=== PATIENT | female | born 1990 | race Caucasian/White ===

== ENCOUNTER 2019-07-13 11:52 | Emergency (ER) | payer OTHER ==
[2019-07-13] MEDS ORDERED: ASPIRIN 81 MG TABLET, CHEWABLE PO ONE (12:36)
--- NOTE | 2019-07-13 12:36 | ER Document Report ---
ED Medical Screen (RME) - General Chief Complaint: Chest Pain Stated Complaint: CHEST PAIN Time Seen by Provider: 07/13/19 12:30 Mode of Arrival: Ambulatory Information source: Patient Notes: 29-year-old female presents to ED for complaint of chest pain off and on for 3 weeks. States she has not been to the doctor yet. Pain is in the center but a little bit more to the right side. Denies any fevers cough or congestion. She states she did have a blood clot in the left lung when with her child who is 3-1/2 years old. States she has not smoked or used vape recently. She denies any recent surgeries or any long trips. She does have a history of asthma. States her last menstrual period was June 19, 2019. Lung sounds clear I have greeted and performed a rapid initial assessment of this patient. A comprehensive ED assessment and evaluation of the patient, analysis of test results and completion of medical decision making process will be conducted by an additional ED providers. TRAVEL OUTSIDE OF THE [place] IN LAST 30 DAYS: No - Related Data Allergies/Adverse Reactions: Penicillins Allergy (Verified 07/13/19 12:29) Past Medical History Pulmonary Medical History: Reports: Hx Asthma Neurological Medical History: Reports: Hx Migraine Past Surgical History: Reports: Hx Oral Surgery - Immunizations Immunizations up to date: Yes Hx Diphtheria, Pertussis, Tetanus Vaccination: Yes
[2019-07-13 13:07] LABS: ABSOLUTE EOSINOPHILS # (AUTO) 0.1 10^3/uL (0.0-0.6); ABSOLUTE LYMPHOCYTES (AUTO) 1.5 10^3/uL (0.5-4.7); ABSOLUTE MONOCYTES (AUTO) 0.5 10^3/uL (0.1-1.4); ABSOLUTE NEUT (AUTO) 4.6 10^3/uL (1.7-8.2); BASOPHILS % (AUTO) 0.4 % (0-2); HEMATOCRIT 36.3 % (36.0-47.0); HEMOGLOBIN 12.6 g/dL (12.0-15.5); LYMPHOCYTES % (AUTO) 22.3 % (13-45); MEAN CORPUSCULAR HEMOGLOBIN 30.8 pg (27.0-33.4); MEAN CORPUSCULAR HGB CONC 34.6 g/dL (32.0-36.0); MEAN CORPUSCULAR VOLUME 89 fl (80-97); MONOCYTES % (AUTO) 7.4 % (3-13); PLATELET COUNT 282 10^3/uL (150-450); RED BLOOD COUNT 4.09 10^6/uL (3.72-5.28); RED CELL DISTRIBUTION WIDTH 12.7 % (11.5-14.0); SEGMENTED NEUTROPHILS % (AUTO) 67.9 % (42-78); TOTAL CELLS COUNTED % (AUTO) 100 %; WHITE BLOOD COUNT 6.8 10^3/uL (4.0-10.5)
[2019-07-13 13:15] LABS: APPEARANCE,URINE CLEAR; BILIRUBIN,URINE NEGATIVE (NEGATIVE); COLOR,URINE COLORLESS; GLUCOSE, URINE NEGATIVE (NEGATIVE); KETONES,URINE NEGATIVE (NEGATIVE); PROTEIN,URINE NEGATIVE (NEGATIVE); URINE SPECIFIC GRAVITY 1.004; UROBILINOGEN,URINE NEGATIVE mg/dL (<2.0)
[2019-07-13 13:17] LABS: ALBUMIN 4.6 g/dL (3.5-5.0); ALKALINE PHOSPHATASE 81 U/L (38-126); ANION GAP 9 (5-19); ASPARTATE AMINO TRANSFERASE 31 U/L (14-36); BILIRUBIN,DIRECT 0.2 mg/dL (0.0-0.4); BILIRUBIN,TOTAL 0.4 mg/dL (0.2-1.3); BLOOD UREA NITROGEN 12 mg/dL (7-20); CALCIUM 9.7 mg/dL (8.4-10.2); CARBON DIOXIDE 29 mmol/L (22-30); CHLORIDE 103 mmol/L (98-107); GLUCOSE 90 mg/dL (75-110); POTASSIUM 4.2 mmol/L (3.6-5.0); TOTAL PROTEIN 8.3 g/dL (6.3-8.2)
--- NOTE | 2019-07-13 13:54 | ER Document Report ---
ED Cardiac - General Chief Complaint: Chest Pain Stated Complaint: CHEST PAIN Time Seen by Provider: 07/13/19 12:30 Mode of Arrival: Ambulatory Notes: CHIEF COMPLAINT: Right chest pain intermittently for 3 weeks HPI: 29-year-old female presenting to the emergency department complaining of intermittent pain in the right chest usually when she wakes up in the morning over the last 3 weeks. Pain does change with palpation, does change with movement of the right arm at the shoulder. Has taken some anti-inflammatories over the last several weeks with some improvement in the pain but it was more persistent this morning so she decided to come in for evaluation. Patient states that she has a history of a pulmonary embolus several years ago and wanted to be sure that this was not a pulmonary embolus. ROS: See HPI - all other systems were reviewed and are otherwise negative Constitutional: no fever Eyes: no drainage, no blurred vision ENT: no runny nose, no sore throat Cardiovascular: + chest pain Resp: no SOB, no cough GI: no vomiting, no diarrhea : no dysuria Integumentary: no rash Allergy: no hives Musculoskeletal: no extremity pain or swelling Neurological: no numbness/tingling, no weakness MEDICATIONS: I agree with the patient medications as charted by the RN. ALLERGIES: I agree with the allergies as charted by the RN. PAST MEDICAL HISTORY/PAST SURGICAL HISTORY: Reviewed and agree as charted by RN. SOCIAL HISTORY: Reviewed and agree as charted by RN. FAMILY HISTORY: No significant familial comorbid conditions directly related to patient complaint EXAM: Reviewed vital signs as charted by RN. CONSTITUTIONAL: Alert and oriented and responds appropriately to questions. Well-appearing; well-nourished, no acute distress HEAD: Normocephalic; atraumatic EYES: PERRL; Conjunctivae clear, sclerae non-icteric ENT: normal nose; no rhinorrhea; moist mucous membranes; pharynx without lesions noted NECK: Supple without meningismus; non-tender; no cervical lymphadenopathy, no masses CARD: RRR; no murmurs, no clicks, no rubs, no gallops; symmetric distal pulses. There is mild tenderness on palpation of the right lateral chest wall RESP: Normal chest excursion without splinting or tachypnea; breath sounds clear and equal bilaterally; no wheezes, no rhonchi, no rales, pulse oximetry 97% on room air not hypoxic ABD/GI: Normal bowel sounds; non-distended; soft, non-tender, no rebound, no guarding; no palpable organomegaly or masses. BACK: The back appears normal and is non-tender to palpation, there is no CVA tenderness EXT: Normal ROM in all joints; non-tender to palpation; no cyanosis, no effusions, no edema SKIN: Normal color for age and race; warm; dry; good turgor; no acute lesions noted NEURO: Moves all extremities equally; Motor and sensory function intact PSYCH: The patient's mood and manner are appropriate. Grooming and personal hygiene are appropriate. MDM: 29-year-old female presenting to the emergency department with an intermittent right chest wall pain. The discomfort is reproducible with palpation and movement of the right arm at the shoulder. I discussed evaluation results at length with the patient, work-up was started in triage. Her screenin g lab work shows a normal d-dimer. Will obtain a chest x-ray. She has a normal sinus rhythm EKG. Her discomfort being reproducible makes it less likely to be a pulmonary embolus. I did discuss this at length with her. I did offer to obtain CT of the chest to evaluate for pulmonary embolus. Patient prefers to not have the study done at this time aware that we cannot definitively rule out a PE without imaging study. She is willing to have a chest x-ray done to ensure there is no pneumothorax or other abnormality. Patient would prefer anti- inflammatories and a muscle relaxer if her chest x-ray is normal and to follow- up with orthopedics. She states that emptiness persists she will return for reevaluation TRAVEL OUTSIDE OF THE [place] IN LAST 30 DAYS: No - Related Data Allergies/Adverse Reactions: Penicillins Allergy (Verified 07/13/19 12:29) Home Medications: inhaler as needed Past Medical History - General Information source: Patient - Social History Smoking Status: Former Smoker Frequency of alcohol use: None Drug Abuse: None Family History: Reviewed & Not Pertinent, Arthritis, CVA, Hyperlipidemia Patient has suicidal ideation: No Patient has homicidal ideation: No Pulmonary Medical History: Reports: Hx Asthma Neurological Medical History: Reports: Hx Migraine Past Surgical History: Reports: Hx Oral Surgery - Immunizations Immunizations up to date: Yes Hx Diphtheria, Pertussis, Tetanus Vaccination: Yes Physical Exam - Vital signs Vitals: Temp Pulse Resp BP Pulse Ox 98.2 F 70 18 125/74 97 07/13/19 12:36 07/13/19 12:36 07/13/19 12:36 07/13/19 12:36 07/13/19 12:36 Course - Re-evaluation Re-evalutation: 07/13/19 15:30 I spoke with the patient at length. Her chest x-ray is negative. We will place her on anti-inflammatory and muscle relaxer per her request. If she has any shortness of breath, fever or worsening symptoms she may return to the emergency department for reevaluation as she does not wish to have the chest CT at this time - Vital Signs Vital signs: Temp Pulse Resp BP Pulse Ox 98.2 F 70 18 125/74 97 07/13/19 12:36 07/13/19 12:36 07/13/19 12:36 07/13/19 12:36 07/13/19 12:36 - Laboratory Result Diagrams: 07/13/19 12:52 07/13/19 12:52 Laboratory results interpreted by me: 07/13/19 12:52 Total Protein 8.3 H Discharge - Discharge Clinical Impression: Chest wall pain Condition: Stable Disposition: HOME, SELF-CARE Instructions: Chest Wall Pain ([facility]) Additional Instructions: Take the medications as prescribed, no driving if taking muscle relaxers as they can make you sleepy. Warm heat to the chest wall to help with spasm and discomfort. Follow-up closely with primary care provider or with orthopedics for reevaluation call for appointment. If you have shortness of breath or develop fever greater than 101 return to the emergency department for reevaluation as discussed Prescriptions: Cyclobenzaprine HCl [Fexmid 7.5 mg Tablet] 7.5 mg PO TID PRN #15 tablet PRN Reason: Naproxen 500 mg PO BID PRN #14 tablet PRN Reason: Referrals: IDA BAKER MD [COMMUNITY BASED STAFF] - Follow up as needed MARGO RIOS JR, DO [ACTIVE PROVISIONAL STAFF] - Follow up as needed
--- NOTE | 2019-07-13 14:46 | RADIOLOGY REPORT (SQ) ---
EXAM DESCRIPTION: CHEST 2 VIEWS COMPLETED DATE/TIME: 07/13/2019 2:37 pm REASON FOR STUDY: chest pain COMPARISON: None. EXAM PARAMETERS: NUMBER OF VIEWS: two views TECHNIQUE: Digital Frontal and Lateral radiographic views of the chest acquired. RADIATION DOSE: NA LIMITATIONS: none FINDINGS: LUNGS AND PLEURA: No opacities, masses or pneumothorax. No pleural effusion. MEDIASTINUM AND HILAR STRUCTURES: No masses or contour abnormalities. HEART AND VASCULAR STRUCTURES: Heart normal size. No evidence for failure. BONES: No acute findings. HARDWARE: None in the chest. OTHER: No other significant finding. IMPRESSION: NO ACUTE RADIOGRAPHIC FINDING IN THE CHEST. TECHNICAL DOCUMENTATION: JOB ID: [id number] [employer]- All Rights Reserved Reading location - IP/workstation name: [email or web address]
[2019-07-13 15:45] VITALS: BP 128/88
--- NOTE | 2019-07-14 09:30 | EKG REPORT ---
SEVERITY:- NORMAL ECG - SINUS RHYTHM : Confirmed by: Phuc Perry 14-Jul-2019 09:29:47
== END 2019-07-13 15:45 | disposition home or self-care (01) ==
LOC: ER 11:52
DX: R07.89 Other chest pain (principal); Z87.891 Personal history of nicotine dependence
CPT/HCPCS: 36415; 71046; 80053; 81001; 84484; 84702; 85025; 85379; 93005; 93010; 99285